=== PATIENT | male | born 1985 | race Two or more races ===

== ENCOUNTER 2017-12-02 13:30 | Emergency (ER) | payer MEDICARE, OTHER ==
[~2017-12-02] VITALS: Ht 175.3 cm; Wt 77.1 kg
[~2017-12-02 13:30] MED LIST: ALBUTEROL SULF8.5 GM INH; AMOXICILLIN500 MG ORAL; AZITHROMYCIN250 MG ORAL; BACTRIM DS TAB1 EAC1 ORAL; CLINDAGEL40 M1 TP; CLINDAMYCIN HC300 MG ORAL; DEPAKENE250 MG ORAL; DEPAKOTE250 MG PO; DUONEB 0.5-3(2.53 ML HHN; KEPPRA500 MG ORAL; LAMICTAL100 MG ORAL; LAMICTAL25 MG ORAL; MUPIROCIN22 GM TOPIC; NORCO 5-325 TA1 EACH ORAL; PHENOBARBITAL100 MG ORAL; PHENOBARBITAL30 MG ORAL
[2017-12-02] MEDS ORDERED: PHENOBARBITAL100 MG ORAL (13:57)
[2017-12-02 14:17] VITALS: BP 119/60
[2017-12-02 14:18] LABS: BASOPHILS % (AUTO) 0.5 % (0.0-2.0); EOSINOPHILS % (AUTO) 0.4 % (0.0-3.0); HEMATOCRIT 45.3 % (42.0-52.0); HEMOGLOBIN 15.8 G/DL (14.2-18.0); LYMPHOCYTES % (AUTO) 26.9 % (20.0-45.0); MEAN CORPUSCULAR VOLUME 91 FL (80-99); MONOCYTES % (AUTO) 6.2 % (1.0-10.0); NEUTROPHILS % (AUTO) 66.1 % (45.0-75.0); PLATELET COUNT 235 K/UL (150-450); RED BLOOD COUNT 4.98 M/UL (4.70-6.10); RED CELL DISTRIBUTION WIDTH 11.3 % (11.6-14.8); WHITE BLOOD COUNT 9.2 K/UL (4.8-10.8)
--- NOTE | 2017-12-02 14:24 | Emergency Room Report ---
History of Present Illness General Chief Complaint: Seizure Source: Patient Present Illness HPI Patient is a 32-year-old male who presented after a seizure. Patient prior history of seizure disorder. He had been noted to be taking multiple seizure medications including Keppra and Lamictal and Depakote and phenobarbital. The patient was out of his phenobarbital for approximately one week he presented for medication refill Allergies: Coded Allergies: No Known Allergies (Unverified , 11/20/13) Patient History Past Medical History: see triage record Reviewed Nursing Documentation: PMH: Agreed; PSxH: Agreed Nursing Documentation-PMH Hx Cardiac Problems: No Hx Cancer: No Hx Gastrointestinal Problems: No Hx Neurological Problems: Yes Hx Seizures: Yes Hx Epilepsy: Yes Hx Neurologic Surgery: Yes - Craniotomy 19 years ago. Review of Systems All Other Systems: negative except mentioned in HPI Physical Exam Vital Signs Date Time Temp Pulse Resp B/P (MAP) Pulse Ox O2 Delivery O2 Flow Rate FiO2 12/02/17 13:43 97.4 88 20 110/67 97 Room Air 97.3 Sp02 EP Interpretation: reviewed, normal General Appearance: normal inspection, well appearing, no apparent distress, alert, GCS 15, non-toxic Head: atraumatic ENT: normal ENT inspection, hearing grossly normal, normal voice Neck: normal inspection, full range of motion, supple, no bony tend Respiratory: normal inspection, lungs clear, normal breath sounds, no respiratory distress, no retraction, no wheezing Cardiovascular #1: regular rate, rhythm, no edema Gastrointestinal: normal inspection, normal bowel sounds, non tender, soft, no guarding, no hernia Genitourinary: no CVA tenderness Musculoskeletal: normal inspection, back normal, normal range of motion Neurologic: normal inspection, alert, oriented x3, responsive, tiller man III-XII nml as tested, speech normal Psychiatric: normal inspection, judgement/insight normal, mood/affect normal Skin: normal inspection, normal color, no rash Medical Decision Making Diagnostic Impression: Primary Impression: Seizure ER Course Patient presented for seizure. Differential diagnosis included a medication withdrawal, cysticercosis, electrolyte abnormality, mass lesion, or cranial hemorrhage.Laboratory testing showed a low phenobarbital level. Patient given IV phenobarbital. He is given prescription for further medications. Patient had no seizure activity while emergency department. Patient was advised follow- up with his neurologist for further evaluation and treatment At the time of discharge patient is awake alert and oriented. Last Vital Signs Date Time Temp Pulse Resp B/P (MAP) Pulse Ox O2 Delivery O2 Flow Rate FiO2 12/02/17 14:17 80 10 119/60 98 Room Air 12/02/17 13:43 97.4 97.3 Status: improved Disposition: HOME, SELF-CARE Condition: Stable Scripts Phenobarbital (Phenobarbital) 100 Mg Tablet 100 MG ORAL EVERY 12 HOURS, #30 TAB 0 Refills Prov: Julio Rios 12/02/17 Referrals: NON PHYSICIAN (PCP) Patient Instructions: Seizure, Adult Julio Rios December 02, 2017 14:24
[2017-12-02 14:32] LABS: ANION GAP 8 mmol/L (5-15); BLOOD UREA NITROGEN 12 mg/dL (7-18); CALCIUM 9.4 MG/DL (8.5-10.1); CARBON DIOXIDE 28 MMOL/L (21-32); CHLORIDE 103 MMOL/L (98-107); CREATININE 0.8 MG/DL (0.55-1.30); POTASSIUM 4.5 MMOL/L (3.5-5.1); SODIUM 139 MMOL/L (136-145)
[2017-12-02 14:37] LABS: ALANINE AMINOTRANSFERASE 20 U/L (12-78); ALBUMIN 3.7 G/DL (3.4-5.0); ALBUMIN/GLOBULIN RATIO 0.7 (1.0-2.7); ALKALINE PHOSPHATASE 118 U/L (46-116); ASPARTATE AMINO TRANSFERASE 17 U/L (15-37); BILIRUBIN,TOTAL 0.3 MG/DL (0.2-1.0)
[2017-12-02 14:47] VITALS: BP 107/61
== END 2017-12-02 14:53 | disposition home or self-care (01) ==
LOC: EMR 14:03
DX: G40.909 Epilepsy, unspecified, not intractable, without status epilepticus (principal); Z79.899 Other long term (current) drug therapy
CPT/HCPCS: 36415; 80053; 80184; 82962; 85025; 96374; 99284; J2560

== ENCOUNTER 2019-05-27 23:14 | Emergency (ER) | payer OTHER ==
[~2019-05-27] VITALS: Ht 172.7 cm; Wt 72.6 kg
--- NOTE | 2019-05-27 23:40 | NUR ---
per patient and family he had seizure today at 2300 ran out one off his meds on arrival he is awake alert oriented and ambulatory dr zurita at bedside
[2019-05-27] MEDS ORDERED: LAMICTAL200 MG ORAL (23:43)
[2019-05-27] MEDS ORDERED: KEPPRA1000 MG ORAL (23:43)
--- NOTE | 2019-05-27 23:43 | Emergency Room Report ---
History of Present Illness General Chief Complaint: Seizure Source: Patient, Friend Present Illness HPI Is a 34-year-old male with a history of intracranial bleed status post craniotomy. He has seizure also. He is on for medication. He is out of to medication. He was brought in by his friends with chief complaint of seizure. He is been having multiple small seizure today. He is a little confused. No trauma. No fever chills. Denies any other symptoms. Similar symptoms in the past. Allergies: Coded Allergies: No Known Allergies (Unverified , 11/20/13) Patient History Past Medical History: see triage record, old chart reviewed, seizures Past Surgical History: other Pertinent Family History: none Social History: Denies: smoking Immunizations: other Reviewed Nursing Documentation: PMH: Agreed; PSxH: Agreed Nursing Documentation-PMH Hx Cardiac Problems: No Hx Cancer: No Hx Gastrointestinal Problems: No Hx Neurological Problems: Yes Hx Seizures: Yes Hx Epilepsy: Yes Hx Neurologic Surgery: Yes - Craniotomy 19 years ago. Review of Systems Eye: Denies: eye pain, blurred vision ENT: Denies: ear pain, nose congestion, throat swelling Respiratory: Denies: cough, shortness of breath Cardiovascular: Denies: chest pain, palpitations Gastrointestinal: Denies: abdominal pain, diarrhea, nausea, vomiting Musculoskeletal: Denies: back pain, joint pain Skin: Denies: rash Neurological: Denies: headache, numbness Endocrine: Denies: increased thirst, increased urine Hematologic/Lymphatic: Denies: easy bruising All Other Systems: negative except mentioned in HPI Physical Exam Vital Signs Date Time Temp Pulse Resp B/P (MAP) Pulse Ox O2 Delivery O2 Flow Rate FiO2 05/27/19 23:25 98.6 72 16 114/76 (89) 96 Room Air Vitals normal Sp02 EP Interpretation: reviewed, normal General Appearance: well appearing, no apparent distress, alert Head: normocephalic, atraumatic Eyes: bilateral eye PERRL, bilateral eye EOMI ENT: hearing grossly normal, normal pharynx Neck: full range of motion, supple, no meningismus Respiratory: chest non-tender, lungs clear, normal breath sounds Cardiovascular #1: regular rate, rhythm, no murmur Gastrointestinal: normal bowel sounds, non tender, no mass, no organomegaly, no bruit, non-distended Musculoskeletal: back normal, gait/station normal, normal range of motion Neurologic: alert, other - Mild confusion Psychiatric: mood/affect normal Medical Decision Making Diagnostic Impression: Primary Impression: Epileptic seizure, generalized Additional Impression: Medication refill ER Course Patient presents with seizure secondary to subtherapeutic level this is out of his medication. Will refill his medication. I gave him a dose of Keppra and Lamictal here. No trauma to warrant x-ray or CT scan. Will discharge home. Last Vital Signs Date Time Temp Pulse Resp B/P (MAP) Pulse Ox O2 Delivery O2 Flow Rate FiO2 05/27/19 23:25 98.6 72 16 114/76 (89) 96 Room Air Status: improved Disposition: HOME, SELF-CARE Condition: Stable Scripts Lamotrigine (LAMICTAL) 200 Mg Tablet 200 MG ORAL TWICE A DAY, #180 TAB 0 Refills Prov: Gatito Thompson MD 05/27/19 Levetiracetam (KEPPRA) 1,000 Mg Tablet 2 TAB ORAL BID, #360 TAB 0 Refills Prov: Gatito Thompson MD 05/27/19 Patient Instructions: Seizure, Adult Additional Instructions: Follow-up with your doctor in the week for recheck. Return if symptoms worsen. Gatito Thompson MD May 27, 2019 23:43
[2019-05-27] MEDS ORDERED: levETIRAcetam 1,000mg/NS100ml 100 ML IVPB ONE (23:45)
--- NOTE | 2019-05-27 23:55 | NUR ---
meds given as orderd
[2019-05-28 00:01] VITALS: BP 130/90
--- NOTE | 2019-05-28 01:12 | NUR ---
ED Nurse Note: Patient cleared for discharge, verbalized understanding of discharge instructions. ID band removed, IV removed. Patient departed with all belongings accompanied by his brother.
[2019-05-28 01:13] VITALS: BP 130/90
== END 2019-05-28 01:14 | disposition home or self-care (01) ==
LOC: EMR 23:42
DX: G40.409 Other generalized epilepsy and epileptic syndromes, not intractable, without status epilepticus (principal); Z76.0 Encounter for issue of repeat prescription
CPT/HCPCS: 96374; J1953; Z7502; 99284